=== PATIENT | female | born 1960 | race Caucasian/White ===

== ENCOUNTER 2018-03-20 14:07 | Emergency (ER) | payer OTHER ==
--- OUTSIDE RECORDS SUMMARY | 2018-03-20 14:18 | XMS REPORT ---
:1960 External Reference #:[id number] Author Organization [employer] Address [address] [facility] [place] [address] Phone [phone] Care Team Providers Name Role Phone Juhi Myles MD Primary Care Physician Unavailable Payers Type Date Identification Numbers Payment Provider Subscriber Commercial Policy Number: [id number] [facility] Chayito Lovett Tashia PayID: [id number] [address] [place] [address] Medigap Part B Effective: 2013 Policy Number: [employer] Chayito Lovett Tashia [id number] Expires: 2018 PayID: [id number] [address] [address] [place] [address] Medigap Part B Effective: 2010 Policy Number: [employer] Chayito Lovett Tashia [id number] Expires: 2013 PayID: [id number] [address] [address] [place] [address] Medigap Part B Effective: Policy Number: [facility] Chayito Lovett Tashia 2009 [id number] Expires: 2010 PayID: [id number] [address] [address] [place] Ramos [address] Problems Date Description Provider Status Onset: 07/20/2011 Insomnia Becka Cruz, N.P. Active Onset: 07/20/2011 Hyperlipidemia Becka Cruz N.P. 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 each nostril twice a day Estrace 08/11/ Active Tablets 0.5mg 30tab 1 by mouth Becka 2012 s every day Varn, N.P. Prometrium 08/05/ Active Capsules 100mg 30cap Take One Becka 2012 s Capsule By Varn, N.P. Mouth AT Bedtime Fluticasone 06/25/ Active Suspension 50mcg/Act 16gm 1 461.9 Ebcka Propionate 2012 intranasal Varn, N.P. puffs once daily Ambien 01/15/ Active Tablets 10mg 30tab 06/18 to 1 Becka 2010 s tablet by Varn, N.P. mouth at bedtime as needed insomnia Fish Oil 12/22/ Active Capsules 300mg 2 po qd Denita 2011 Hardik Clemente Valtrex / Active Tablets 1gm 21tab 2 Tabs Becka s Every 12 Varn, N.P. Hours For 2 Doses as Needed Co Q-10 / Active Capsules 30mg daily Unknown 0000 Vit C / Active Unknown 0000 Vit E / Active Unknown 0000 Doxycycline 06/01/ Hx Tablets 20mg 20tab 1 po bid 782.1 Becka Hyclate 2012 - s for 10 days Varn, N.P. 2012 Vivelle-Dot 08/05/ Hx Patches 0.0375mg/ 8unit apply 1 Becka 2012 - Biweek 24HR s patch twice Varn, N.P. 08/11/ a week 2012 Zetonna 06/25/ Hx Aerosol 37mcg/Act 461.9 Kylie 2012 - Chante, 08/04/ M.D. 2013 Amoxicillin 06/25/ Hx Capsules 500mg 10cap one tablet 461.9 Kylie 2012 - s by mouth Chante 02/18/ every 12 M.D. 2013 hours until gone Fluconazole 05/15/ Hx Tablets 150mg 2tabs one by Kylie 2011 - mouth october Sharif, 06/25/ repeat in 3 M.D. 2012 days as needed Azithromycin 05/06/ Hx Tablets 250mg 6tabs 2 tabs po Denita 2012 - on day 1; 1 Bryn, 05/23/ tab po qd M.D. 2011 on days 2-5 Fluticasone 04/15/ Hx Suspension 50mcg/Act 16gm 2 461.9 Denita Propionate 2011 - intranasal Bryn, 06/25/ puffs once M.D. 2012 daily Azithromycin 04/15/ Hx Tablets 250mg 6tabs 2 tabs po 461.9 Denita 2012 - on day 1; 1 Bryn, 04/25/ tab po qd M.D. 2011 on days 2-5 Gabapentin 04/10/ Hx Capsules 300mg 30cap 1 capsule Anaya 2010 - s at bedtime Marley, 08/02/ M.D., FACP 2011 Jolessa 12/27/ Hx Tablets 0.15-0.03 1tabs 1 po qd Anaya 2010 - mg Marley, 08/02/ M.D., FACP 2011 Vitamin E 12/22/ Hx Capsules 100Unit 1 po qd Denita 2011 - Bryn, 05/23/ M.D. 2011 Seasonique 12/22/ Hx Tablets 0.15-0.03 91tab take 1 V25.02 2010 - &0.01mg s tablet by Bryn, 12/27/ mouth once M.D. 2010 a day Azithromycin 04/29/ Hx Tablets 250mg 6tabs 2 tabs po Denita 2009 - on day 1; 1 Bryn, 06/20/ tab po qd M.D. 2010 on days 2-5 Ambien 03/06/ Hx Tablets 5mg 30tab one by Anaya 2009 - s mouth at Marley, 01/15/ bedtime as M.D., FACP 2010 needed for sleep Trazodone HCL / Hx Tablets 50mg 30tab 1 tablet at Anaya 0000 - s bedtime as Marley, 03/06/ needed M.D., FACP 2009 Flaxseed Oil / Hx Capsules 1000mg 1 po qd Unknown 0000 - 2011 Immunizations CPT Code Status Date Vaccine Lot # [id number] Given 03/05/2012 Fluzone Vaccine [id number] Given 06/20/2010 Influenza Virus 3Yrs & Over 13010 Given 06/20/2007 Tdap - Tetanus/Diptheria/Acellular Pertussis [id number] Given 04/24/2007 Influenza Virus 3Yrs & Over 23295 Given 04/24/2007 Influenza Virus 3Yrs & Over Vital Signs Date Vital Result Comment 03/19/2018 Height 67 inches 5'7" Weight 158.00 lb Heart Rate 78 /min BP Systolic 126 mmHg BP Diastolic 76 mmHg Respiratory Rate 12 /min Pain Level 0 BMI (Body Mass Index) 24.7 kg/m2 06/24/2013 Weight 147.00 lb Heart Rate 64 /min BP Systolic 120 mmHg BP Diastolic 74 mmHg 06/01/2013 Weight 150.00 lb Heart Rate 64 /min BP Systolic Sitting 120 mmHg BP Diastolic Sitting 72 mmHg Body Temperature 97.2 F 08/04/2012 Height 65.75 inches 5'5.75" Weight 143.00 lb Heart Rate 64 /min BP Systolic Sitting 138 mmHg BP Diastolic Sitting 80 mmHg BMI (Body Mass Index) 23.3 kg/m2 07/16/2012 Height 66 inches 5'6" Weight 145.00 lb Heart Rate 68 /min BP Systolic Sitting 124 mmHg BP Diastolic Sitting 70 mmHg BMI (Body Mass Index) 23.4 kg/m2 06/25/2012 Height 66 inches 5'6" Weight 145.00 lb Heart Rate 64 /min BP Systolic Sitting 100 mmHg BP Diastolic Sitting 80 mmHg Body Temperature 97.4 F BMI (Body Mass Index) 23.4 kg/m2 05/23/2012 Height 66 inches 5'6" Weight 144.00 lb Heart Rate 68 /min BP Systolic Sitting 128 mmHg BP Diastolic Sitting 76 mmHg BMI (Body Mass Index) 23.2 kg/m2 04/15/2012 Height 66 inches 5'6" Weight 146.00 lb Heart Rate 70 /min BP Systolic Sitting 128 mmHg BP Diastolic Sitting 80 mmHg Body Temperature 97.5 F BMI (Body Mass Index) 23.6 kg/m2 03/05/2012 Height 66 inches 5'6" Weight 146.00 lb Heart Rate 64 /min BP Systolic Sitting 146 mmHg BP Diastolic Sitting 86 mmHg BMI (Body Mass Index) 23.6 kg/m2 08/16/2011 Height 66 inches 5'6" Weight 155.00 lb Heart Rate 72 /min BP Systolic Sitting 120 mmHg BP Diastolic Sitting 72 mmHg BMI (Body Mass Index) 25.0 kg/m2 08/02/2011 Height 66 inches 5'6" Weight 153.00 lb Heart Rate 60 /min BP Systolic Sitting 118 mmHg BP Diastolic Sitting 76 mmHg BMI (Body Mass Index) 24.7 kg/m2 04/10/2011 Height 66 inches 5'6" Weight 156.00 lb Heart Rate 72 /min BP Systolic Sitting 134 mmHg L BP Diastolic Sitting 78 mmHg L BMI (Body Mass Index) 25.2 kg/m2 12/22/2010 Height 66 inches 5'6" Weight 152.00 lb Heart Rate 64 /min BP Systolic Sitting 132 mmHg BP Diastolic Sitting 80 mmHg BMI (Body Mass Index) 24.5 kg/m2 06/20/2010 Height 66 inches 5'6" Weight 155.00 lb Heart Rate 78 /min BP Systolic 110 mmHg BP Diastolic 62 mmHg BMI (Body Mass Index) 25.0 kg/m2 03/06/2010 Weight 159.00 lb Heart Rate 72 /min BP Systolic 124 mmHg BP Diastolic 80 mmHg Results Test Date Test Result H/L Range Note Laboratory test finding 08/04/2012 Cytology RUN DATE: <SEE NOTE> Laboratory test finding 02/22/2012 PTT (Aptt) 26.3 SEC 25.1-38.5 Comp Metabolic Panel 02/22/2012 Sodium 136 mmol/L 135-145 Potassium 3.6 mmol/L 3.5-5.0 Chloride 103 mmol/L 101-111 Co2 (Carbon Dioxide) 26.0 mmol/L 22-32 Anion Gap 7.0 mmol/L 2-11 2 Glucose 153 mg/dL High 70-100 BUN 12 mg/dL 6-24 Creatinine 0.7 mg/dL 0.50-1.40 One Over Creatinine 1.42 BUN/Creatinine Ratio 17.1 8-20 Calcium 9.2 mg/dL 8.1-9.9 Total Protein 7.8 GM/DL 6.2-8.1 Albumin 4.3 GM/DL 3.6-5.4 Globulin 3.5 GM/DL 2-4 Albumin/Globulin Ratio 1.2 1-3 Bilirubin Total 0.8 mg/dL 0.4-1.5 3 Alkaline Phosphatase 46 U/L 30-110 Alt (SGPT) 32 U/L 14-54 Ast (Sgot) 35 U/L 12-42 eGFR Non- 88.6 > 60 eGFR 113.9 > 60 4 Laboratory test finding 02/22/2012 Troponin-I 0 NG/ML 0-0.06 5 Magnesium 1.6 mg/dL Low 1.7-2.6 Protime 02/22/2012 Inr 0.85 Low 0.88-1.13 6 Protime 10.1 SEC Low 10.3-13.5 7 CBC No Diff 02/22/2012 White Blood Count 6.2 CUMM 4.8-10.8 Red Cell Count 4.26 CUMM 4.2-5.4 Hemoglobin 14.8 g/dL 12.0-16.0 Hematocrit 42 % 35-47 Mean Corpuscular Volume 100 um3 High 79-97 Mean Corpuscular Hemoglob 35 pg High 27-31 Mean Corpuscular HGB Cone 35 g/dL 32-36 Redcell Distribution WDTH 14 % 10.5-15 Platelet Count 361 CUMM 150-450 Mean Platelet Volume 7.9 um3 7.4-10.4 Laboratory test 02/22/2012 Stool For Blood NEGATIVE Negative finding Surgical Pathology 09/07/2011 Surgical Pathology 8 <SEE NOTE> Laboratory test 08/02/2011 TSH 0.85 MIU/ML 0.34-5.60 finding Lipid Profile 08/02/2011 Triglyceride 103 mg/dL 40-200 (Trig/Chol/HDL) Cholesterol 294 mg/dL High Less Than 200 9 High Density Lipoprotein 74 mg/dL High 40-60 10 Cholesterol/HDL Ratio 3.97 AVERAGE 1-4.44 Low Density Lipoprotein 199 mg/dL High Less Than 100 11 Comp Metabolic Panel 08/02/2011 Sodium 138 mmol/L 135-145 Potassium 4.2 mmol/L 3.5-5.0 Chloride 104 mmol/L 101-111 Co2 (Carbon Dioxide) 28.0 mmol/L 22-32 Anion Gap 6.0 mmol/L 2-11 12 Glucose 96 mg/dL 70-100 BUN 7 mg/dL 6-24 Creatinine 0.7 mg/dL 0.50-1.40 One Over Creatinine 1.42 BUN/Creatinine Ratio 10.0 8-20 Calcium 9.5 mg/dL 8.1-9.9 Total Protein 7.4 GM/DL 6.2-8.1 Albumin 4.3 GM/DL 3.6-5.4 Globulin 3.1 GM/DL 2-4 Albumin/Globulin Ratio 1.4 1-3 Bilirubin Total 1.1 mg/dL 0.4-1.5 13 Alkaline Phosphatase 40 U/L 30-110 Alt (SGPT) 24 U/L 14-54 Ast (Sgot) 23 U/L 12-42 eGFR Non- 88.6 > 60 eGFR 113.9 > 60 14 Laboratory test finding 08/02/2011 C Reactive Protein High 1.0 mg/L Less Than 3 15 Sensit 1 RUN DATE: 08/05/12 [facility] LAB LIVE PAGE 1 RUN TIME: [address] [place] [id number] Specimen Inquiry Name: CHAYITO LAO : [address]: Becka Cruz NP Acct: [id number] Unit: [id number] AGE: 52 Location: [facility] Re08/04/12 SEX: F Status: REG REF SPEC: [id number] MARIVEL: 08/04/12-1439 [facility] DR: Becka Cruz NP REQ: [id number] RECD: 08/05/12 STATUS: CONCETTA LOAIZA DR: Anaya Roach MD _ ORDERED: IMAGE ANALYSIS FINAL DIAGNOSIS Negative for Intraepithelial lesion or Malignancy A. Ectocervical/Endocervical Specimen Adequacy: Satisfactory of evaluation Transformation zone component identified Patient Information: HPV: Thin Layer Pap Test w/reflex to high risk HPV DNA testing when ASCUS Actual Specimen Date: 08/04/12 LMP If Unknown: 08/2011 IUD: N ?: N Post Menopausal?: Y Hysterectomy?: N Previous Abnormal Pap Smears?:N Signed (signature on file) Sara SHELL Burleson (ASCP) 08/05/12 1240 This Pap test was evaluated with the assistance of the XL GroupPrep Test Imaging System. Due to cytologic findings at the retention representative microscope, comprehensive manual rescreening by a Spot Billing Clerk may be required. The Pap Smear is a screening test designed to aid in the detection of premalignant and malignant conditions of the uterine cervix. It is not a diagnostic procedure and should not be used as the sole means of detecting cervical cancer. Both false- positive and false- negative reports do occur. Depending on your risk status, a Pap smear shoudl be obtained and evaluated every 1-3 years. END OF REPORT * ML=Testing performed at Main Lab DEPARTMENT OF PATHOLOGY, [address] [place] [address] Joaquin Celestin M.D. Director [facility] Permit #[id number] 2 Anion gap measurement may be of limited value in the presence of any alkalosis, especially in a combined acid base disorder. . 3 A metabolite of Naproxen, O-desmethylnaproxen, has been shown to interfere with the Jendrassik-Arya method for measuring total bilirubin. Samples from patients who have taken Naproxen have shown spurious elevation in total bilirubin levels. 4 Because ethnic data is not always readily available, this report includes an eGFR for both -Americans and non- Americans. The National Kidney Disease Education Program (NKDEP) does not endorse the use of the MDRD equation for patients that are not between the ages of 18 and 70, are , have extremes of body size, muscle mass, or nutritional status, or are non- or non-. According to the National Kidney Foundation, irrespective of diagnosis, the stage of the disease is based on the level of kidney function: Stage Description GFR(mL/min/1.73 m(2)) 1 Kidney damage with normal or decreased GFR 90 2 Kidney damage with mild decrease in GFR 60-89 3 Moderate decrease in GFR 30-59 4 Severe decrease in GFR 15-29 5 Kidney failure <15 (or dialysis) 5 New Reference Range and Interpretation effective 03/20/2002 TnI (ng/ml) INTERPRETATION Less Than 0.06 ng/mL NOT SUPPORTIVE OF DIAGNOSIS OF [place] 0.06 - 0.50 ng/ml INDETERMINATE: SUGGEST SERIAL STUDIES IF CLINICALLY INDICATED. Greater than 0.5 ng/mL CONSISTENT WITH DIAGNOSIS OF [place] . 6 Recommended INR for Patients on Oral Anticoagulants Prophylaxis 2.0 - 3.0 Treatment of thrombosis 2.0 - 3.0 Prevention of embolism 2.0 - 3.0 Prevention of embolism from prosthetic heart valves 2.5 - 3.5 7 DIAGNOSIS,TREATMENT,AND THERAPY MUST BE BASED ON THE INR VALUE ALONE. 8 --- RUN DATE: 09/10/11 [facility] NMI LIVE PAGE 1 RUN TIME: 1405 Specimen Inquiry RUN USER: INTERFACE -- Name: CHAYITO LAO Status: REG REF Re09/07/11 Age/Sex: 51/F Unit#: [id number] Location: [facility] : [birth year] -- Specimen: [id number] SOUT Spec Date:09/07/11 Dr: James rob MD Spec Type: SURGICAL P Received:09/07/11-1245 Copies to: Anaya Roach MD SPECIMEN 1) COLON POLYP AT 40 CM. 2) COLON POLYP AT 35 CM. HISTORY POST-OP DIAGNOSIS: To terminal ileum - 2 polyps (40 cm. and 35 cm.); mild tics CLINICAL INFORMATION: Routine screening GROSS DESCRIPTION 1) The specimen is received in formalin labelled Chayito Lao, Colon Polyp at 40 cm., and consists of a newell soft tissue fragment measuring 0.6 x 0.3 x 0.2 cm. Submitted entirely, one cassette. 2) The specimen is received in formalin labelled Chayito Lao, Colon Polyp at 35 cm., and consists of multiple newell soft tissue fragments measuring 0.6 x 0.3 x 0.3 cm. Submitted entirely, one cassette. DIAGNOSIS 1) Colon, 40 cm., biopsy: Hyperplastic polyp. 2) Colon, 35 cm., biopsy: Hyperplastic polyp. Signed Electronically by: JOAQUIN CELESTIN MD 09/10/11 1402 -- -- DEPARTMENT OF PATHOLOGY, [address] [place] [address] [facility] Permit #[id number] Hardik Gonzalez M.D. Computer Network Support Specialist Dir myrna -- 9 CHOLESTEROL INTERPRETATION: Desirable: Less than 200 MG/DL Borderline-High Risk: 200-239 MG/DL High-Risk: 240 MG/DL and over 10 HDL INTERPRETATION: Undesirable: High Risk: Less than 40 MG/DL Desirable: Low Risk: Greater than 60 MG/DL 11 LDL INTERPRETATION: Low Risk Optimal Level: LDL Less than 100 MG/DL Near or Above Optimal: LDL 100-129 MG/DL Borderline High Risk: LDL 130-159 MG/DL High Risk: LDL 160-189 MG/DL Very High Risk: LDL Greater than 189 MG/DL 12 Anion gap measurement may be of limited value in the presence of any alkalosis, especially in a combined acid base disorder. . 13 A metabolite of Naproxen, O-desmethylnaproxen, has been shown to interfere with the Jendrassik-Arya method for measuring total bilirubin. Samples from patients who have taken Naproxen have shown spurious elevation in total bilirubin levels. 14 Because ethnic data is not always readily available, this report includes an eGFR for both -Americans and non- Americans. The National Kidney Disease Education Program (NKDEP) does not endorse the use of the MDRD equation for patients that are not between the ages of 18 and 70, are , have extremes of body size, muscle mass, or nutritional status, or are non- or non-. According to the National Kidney Foundation, irrespective of diagnosis, the stage of the disease is based on the level of kidney function: Stage Description GFR(mL/min/1.73 m(2)) 1 Kidney damage with normal or decreased GFR 90 2 Kidney damage with mild decrease in GFR 60-89 3 Moderate decrease in GFR 30-59 4 Severe decrease in GFR 15-29 5 Kidney failure <15 (or dialysis) 15 Less Than 1.0......Low Risk of Cardiovascular Disease 1.0-3.0............Medium Risk (<2 Fold Increase) Greater Than 3.0...High Risk (Approximately 2-Fold Increase) Procedures Date CPT Code Description Status 04/17/2016 53674 ECHO Stress Test Incl Perf Contiuous ekg Monitoring Completed W/Phys Superv 08/04/2013 Mammogram Completed 11/02/2011 Mammogram Completed 09/07/2011 Colonoscopy Completed 08/02/2010 Mammogram Completed 05/20/2009 13329 Endometrial Sampling W Or W/O Endocervical BX W Or W/O Completed Cerv Dilat 06/20/2007 15163 EKG Tracing & Interpretation Completed Encounters Type Date Location Provider CPT E/M Dx Office Visit 06/24/[address] [facility] Internal Medicine Becka Cruz N.P. 57166 780.52 4:00p - [place] 727.41 Office Visit 06/01/2013 9:00a [facility] Internal Medicine Becka Cruz N.P. 26948 472.0 - [place] 782.1 Office Visit 08/04/2012 1:00p [facility] Internal Medicine Becka Cruz N.P. 67328 V70.0 - [place] V72.31 V76.10 272.4 780.52 627.2 Office Visit 07/16/2012 4:00p [facility] Internal Medicine Becka Cruz N.P. 94275 455.3 - [place] Office Visit 06/25/2012 4:20p [facility] Internal Medicine Kylie Sharif M.D. 95964 461.9 - [place] Office Visit 05/23/2012 3:40p [facility] Internal Medicine Kylie Sharif M.D. 68928 719.44 - [place] 461.9 616.10 Office Visit 04/15/2012 3:40p [facility] Internal Medicine Denita Clemente, 92682 461.9 - [place] M.D. Office Visit 03/05/2012 3:40p [facility] Internal Medicine Anaya Roach M.D., 74944 401.9 - [place] FACP V04.81 Office Visit 08/16/2011 10:00a [facility] Internal Medicine Becka Cruz, N.P. 37078 272.4 - [place] Office Visit 08/02/2011 10:40a [facility] Internal Medicine Becka Cruz, N.P. 23781 V70.0 - [place] V72.31 V76.10 272.4 780.52 Office Visit 04/10/2011 8:40a DO Not Use [facility] Becka Cruz, 37077 627.2 N.P. 723.1 Office Visit 02/27/2011 2:30p [facility], 57762 836.0 C.M.A. MNgozi Office Visit 12/22/2010 2:40p DO Not Use Becka Anthony, N.P. 74394 V25.02 [facility] Office Visit 03/06/2010 9:45a DO Not Use Becka Cruz, N.P. 42400 780.52 [facility] Office Visit 04/19/2009 3:45p DO Not Use Becka Anthony, N.P. 45124 780.52 [facility] 626.2 Office Visit 09/03/2008 10:15a DO Not Use [facility] Anaya Roach, 52610 780.52 M.D., FACP 300.00 Office Visit 06/20/2007 11:00a DO Not Use [facility] Anaya Roach, 16548 V72.31 M.D., FACP 272.0 780.52 V06.1 Office Visit 04/24/2007 10:30a DO Not Use [facility] [place] [place], 39591 780.52 Hardik, FACP V04.81 Office Visit 03/28/2006 1:45p DO Not Use [facility], 40516 V72.31 Hardik, [facility] Plan [facility] Care Future Appointment(s):04/17/2018 2:50 pm - Aydee Busby MD at [facility]31/16/2018 8:00 am - Jose Leigh M.D. at [facility]
[2018-03-20 14:26] VITALS: BP 162/89
--- NOTE | 2018-03-20 15:31 | RAD ---
INDICATION: Head injury, headache. COMPARISON: There are no relevant prior studies available for comparison. TECHNIQUE: Contiguous axial sections of the brain were obtained from the skull base to the vertex without contrast. FINDINGS: The ventricles, cisterns and sulci are within normal limits. No significant focal abnormality or mass effect is seen. There is no evidence for hemorrhage. No significant focal osseous abnormality is seen. The visualized portion of the paranasal sinuses and mastoid air cells appear clear. IMPRESSION: NO EVIDENCE FOR ACUTE INTRACRANIAL ABNORMALITY.
--- NOTE | 2018-03-20 15:36 | RAD ---
INDICATION: Trauma, neck pain. COMPARISON: There are no prior studies available for comparison. TECHNIQUE: Contiguous axial sections were obtained from the skull base through the T2 vertebra. Images were reconstructed in the sagittal and coronal planes. FINDINGS: VERTEBRA: There is straightening of the cervical spine with loss of the normal cervical lordosis. No prevertebral soft tissue swelling or fracture is seen. C2-C3: No significant disc bulge or herniation is noted. No spinal canal or neural foraminal narrowing is seen. C3-C4: There is mild posterior uncinate process spurring. No significant spinal canal narrowing is present. There is mild to moderate bilateral neural foraminal narrowing. C4-C5: There is moderate posterior uncinate process spurring. There is mild spinal canal narrowing and moderate bilateral neural foraminal narrowing. C5-C6: There is mild posterior uncinate process spurring. No significant spinal canal narrowing is present. There is mild neural foraminal narrowing on the right side. C6-C7: No significant disc bulge or herniation is noted. No spinal canal or neural foraminal narrowing is seen. LUNG APICES: The lung apices appear clear. IMPRESSION: 1. NO EVIDENCE FOR FRACTURE OR SUBLUXATION. 2. MILD TO MODERATE CERVICAL SPONDYLOSIS DESCRIBED.
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
== END 2018-03-20 16:15 | disposition home or self-care (01) ==
LOC: UCEAST 14:07
DX: S16.1XXA Strain of muscle, fascia and tendon at neck level, initial encounter (principal); S09.90XA Unspecified injury of head, initial encounter; S80.02XA Contusion of left knee, initial encounter; M47.892 Other spondylosis, cervical region; V89.2XXA Person injured in unspecified motor-vehicle accident, traffic, initial encounter; Y92.9 Unspecified place or not applicable
CPT/HCPCS: 70450; 72125; 99211; G0463

== ENCOUNTER 2019-05-05 13:09 | Emergency (ER) | payer OTHER ==
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
[2019-05-05 13:47] VITALS: BP 202/115
== END 2019-05-05 14:23 | disposition short-term general hospital (02) ==
LOC: UCEAST 13:09
DX: I10 Essential (primary) hypertension (principal); M54.89 Other dorsalgia; R07.89 Other chest pain
CPT/HCPCS: 93005; 99213; G0463

== ENCOUNTER 2019-05-05 14:32 | Emergency (ER) | payer OTHER ==
--- NOTE | 2019-05-05 14:51 | ED ---
Neck Pain - HPI Summary HPI Summary: This patient is a 59 year old F sent to ED from with a chief complaint of neck pain that radiates to the shoulder blades and down the upper back since last night at dinner. This morning, when about to shower, the pain came on again. This time she also reports having left hand shakiness. The pain went away but then it occurred again while the patient was at work. This third time, she felt like she was going to pass out so she was sent home. Patient then went to Urgent Care, and felt the pain again while on the way to the office. The pain is described as soreness. At Urgent Care, patient was found to be hypertensive. EMS reports patient had a HR 108 and sinus tachycardia. Patient denies any unusual activity recently or any trauma. The patient rates the pain 6 /10 in severity. Symptoms aggravated by nothing. Symptoms alleviated by nothing. Patient denies fever, nausea, vomiting, diarrhea. Medications reviewed. Allergies noted. - History of Current Complaint Chief Complaint: EDBackInjuryPain Stated Complaint: BACK PAIN PER EMS Time Seen by Provider: 05/05/19 14:42 Hx Obtained From: Patient Onset/Duration Of Injury/Symptoms: Days - Since dinner last night Mechanism Of Injury: No Known Trauma Timing: Intermittent Onset/Duration: Sudden Onset, Started hours ago - At dinner last night, Still Present Severity Initially: Moderate Severity Currently: Moderate Pain Intensity: 6 Pain Scale Used: 0-10 Numeric Location: Discrete At: - Neck, Radiates To: - Shoulders and upper back Character: Other: - Sore Aggravating Factors: Nothing Alleviating Factors: Nothing Associated Signs & Symptoms: Negative: Fever - Allergies/Home Medications Allergies/Adverse Reactions: Allergies Allergy/AdvReac Type Severity Reaction Status Date / Time gluten Allergy See Comment Verified 05/05/19 13:28 PMH/Surg Hx/FS Hx/Imm Hx Endocrine/Hematology History: Denies: Hx Diabetes, Hx Thyroid Disease Cardiovascular History: Reports: Hx Hypertension, Other Cardiovascular Problems/ Disorders - 3 weeks ago thought she was having heart attack Denies: Hx Hypercholesterolemia, Hx Pacemaker/ICD, Hx Peripheral Vascular Disease Respiratory History: Denies: Hx Asthma, Hx Chronic Obstructive Pulmonary Disease (COPD) GI History: Denies: Hx Ulcer Musculoskeletal History: Denies: Hx Arthritis, Hx Rheumatoid Arthritis, Hx Osteoporosis Sensory History: Denies: Hx Cataracts, Hx Contacts or Glasses, Hx Glaucoma, Hx Hearing Aid Opthamlomology History: Denies: Hx Cataracts, Hx Contacts or Glasses, Hx Glaucoma Neurological History: Denies: Hx Headaches, Hx Seizures, Hx Transient Ischemic Attacks (TIA) Psychiatric History: Denies: Hx Anxiety, Hx Depression, Hx Panic Disorder - Cancer History Hx Chemotherapy: No Hx Radiation Therapy: No - Surgical History Surgery Procedure, Year, and Place: RT KNEE-TORN MENISCUS- 2012- no metal. [place]CYST [place] [facility] [place] Infectious Disease History: No Infectious Disease History: Denies: Hx Hepatitis, Hx Human Immunodeficiency Virus (HIV), History Other Infectious Disease, Traveled Outside the [place] in Last 30 Days - Family History Known Family History: Positive: Hypertension, Other - mother had multiple myeloma - Social History Alcohol Use: Daily - 3-4 drinks daily Hx Substance Use: No Substance Use Type: Reports: None Hx Tobacco Use: No Smoking Status (MU): Never Smoked Tobacco Review of Systems Negative: Fever Negative: Vomiting, Diarrhea, Nausea Musculoskeletal: Other - Neck pain radiating across bilateral shoulders down upper back All Other Systems Reviewed And Are Negative: Yes Physical Exam - Summary Physical Exam Summary: Constitutional: Well-developed, Well-nourished, Alert. (-) Distressed Skin: Warm, Dry HENT: Normocephalic; Atraumatic Eyes: Conjunctiva normal Neck: Musculoskeletal ROM normal neck. (-) JVD, (-) Stridor, (-) Tracheal deviation Cardio: Rhythm regular, rate normal, Heart sounds normal; Intact distal pulses; Radial pulses are 2+ and symmetric. (-) Murmur Pulmonary/Chest wall: Effort normal. (-) Respiratory distress, (-) Wheezes, (-) Rales Abd: Soft, (-) tenderness, (-) Distension, (-) Guarding, (-) Rebound Musculoskeletal: (-) Edema Lymph: (-) Cervical adenopathy Neuro: Alert, Oriented x3 Psych: Mood and affect Normal Triage Information Reviewed: Yes Vital Signs On Initial Exam: Initial Vitals Temp Pulse Resp BP Pulse Ox 97 F 103 17 217/130 100 05/05/19 14:36 05/05/19 14:36 05/05/19 14:36 05/05/19 14:36 05/05/19 14:36 Vital Signs Reviewed: Yes Procedures - Sedation Patient Received Moderate/Deep Sedation with Procedure: No Diagnostics - Vital Signs Vital Signs Temp Pulse Resp BP Pulse Ox 05/05/19 14:36 97 F 103 17 217/130 100 - Laboratory Result Diagrams: 05/05/19 15:32 05/05/19 15:32 Lab Statement: Any lab studies that have been ordered have been reviewed, and results considered in the medical decision making process. - CT C/A/P CT Interpretation Completed By: Radiologist Summary of CT Findings: 1. THERE IS NO EVIDENCE FOR AORTIC DISSECTION. 2. 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 3. CORONARY ATHEROSCLEROSIS. 4. MILD HEPATOMEGALY AND HEPATIC STEATOSIS. 5. SMALL PERIUMBILICAL HERNIA CONTAINING FAT. 6. SMALL 4 MM RIGHT MIDDLE LOBE PULMONARY NODULE. IF THE PATIENT HAS RISK FACTORS RECOMMEND A FOLLOW-UP NONCONTRAST LOW-DOSE CT OF THE CHEST IN ONE YEARS TIME. Dr. De La Torre has reviewed this radiology report. Re-Evaluation - Re-Evaluation First Eval Re-Evaluation Time: 16:34 Comment: Discussed results with patient. Strict return precautions given. Patient will be discharged home with instructions to follow-up with Dr. Honeycutt for a stress test and with her primary care for a follow-up CT scan in one year' s time to check on the pulmonary nodule noted today. Discussed mechanisms for stress management with patient. Neck Course/Dx - Course Course Of Treatment: Patient is here with hypertension, tachycardia, pain in her neck and upper back. Patient was sent in from urgent care to rule out dissection. Patient was near asymptomatic upon arrival. However, given patient 's symptomology a CTA was performed which showed no evidence of dissection. Patient does have a lung nodule that she was made aware of that she needs follow -up for in 1 year. Patient did have an episode where she felt pain in her back , tachypnea all getting IV fluids. Patient was encouraged to take along deep breaths which improved her symptoms. I do believe there is a panic aspect to this illness as she is going through multiple high stress situations in life. 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 - Diagnoses Provider Diagnoses: Tachycardia, Hypertension, Upper back pain Discharge ED - Sign-Out/Discharge Documenting (check all that apply): Patient Departure - Discharge - Discharge Plan Condition: Stable Disposition: HOME Prescriptions: hydrOXYzine pamoate [Vistaril] 25 mg PO Q6HR PRN #20 capsule PRN Reason: Anxiety Patient Education Materials: Tension Headache (ED), Hypertension (ED), Pulmonary Nodules (ED), Tachycardia (ED) Referrals: Juhi Joseph MD [Primary Care Provider] - 3 Days Carina Honeycutt MD [Medical Doctor] - 3 Days Additional Instructions: You need to follow-up with your primary care provider for another CT scan in one year for the pulmonary nodule noted on your CT scan taken today. Follow-up with Dr. Honeycutt for a stress test. Look up breathing techniques on Youtube for anxiety. Take your anxiety medications today. Come back if you have chest pain, trouble breathing, or any other worsening or changing symptoms. - Billing Disposition and Condition Condition: STABLE Disposition: Home - Attestation Statements Document Initiated by Cherise: Yes Documenting Scribe: Jalen Donato Provider For Whom Cherise is Documenting (Include Credential): Andrea De La Torre MD Scribe Attestation: IJalen, scribed for Andrea De La Torre MD on 05/05/19 at 1755. Scribe Documentation Reviewed: Yes Provider Attestation: The documentation as recorded by the Jalen ocampo accurately reflects the service I personally performed and the decisions made by me, Andrea De La Torre MD Status of Scribe Document: Viewed
[2019-05-05] MEDS ORDERED: NS 0.9% 1000 ML** 1,000 ML IV ONE (14:56)
[2019-05-05] MEDS ORDERED: Iodixanol* (CONTRAST) 320 MG/ML 100 ML SDV IV ONE (15:12)
[2019-05-05 15:41] LABS: ABS Basophils 0.1 10^3/ul (0-0.2); ABS Eosinophils 0.1 10^3/ul (0-0.6); ABS Lymphocytes 1.6 10^3/ul (1.0-4.8); ABS Monocytes 1.1 10^3/ul (0-0.8); ABS Neutrophils 4.4 10^3/ul (1.5-7.7); Eosinophil % 0.9 %; Hematocrit 41 % (35-47); Lymphocyte % 22.2 %; Mean Corpuscular HGB Conc 34 g/dL (31-36); Mean Corpuscular Hemoglobin 34 pg (27-31); Mean Corpuscular Volume 98 fL (80-97); Mean Platelet Volume 7.4 fL (7.4-10.4); Platelet Count 511 10^3/uL (150-450); Red Blood Count 4.16 10^6 /uL (3.70-4.87); Red Cell Distribution Width 13 % (10-15); White Blood Count 7.3 10^3/uL (3.5-10.8)
[2019-05-05 16:06] LABS: Albumin 4.2 g/dL (3.2-5.2); Albumin/Globulin Ratio 1.4 (1-3); Calcium 10.2 mg/dL (8.6-10.3); EGFR African American 124.2 (>60); EGFR Non-African American 102.7 (>60); Potassium 3.8 mmol/L (3.5-5.0); Total Bilirubin 0.4 mg/dL (0.2-1.0); Total Protein 7.2 g/dL (6.4-8.9)
[2019-05-05 16:07] LABS: Troponin I 0.01 ng/mL (<0.03)
[2019-05-05] MEDS ORDERED: LORazepam INJ* 2 MG/ML 1 ML VIAL IV PUSH ONE (16:13)
[2019-05-05] MEDS ORDERED: Lorazepam PYXIS KEY PRN (16:13)
[2019-05-05] MEDS ORDERED: Lorazepam PYXIS KEY ONE (16:20)
[2019-05-05 17:04] VITALS: BP 183/95
== END 2019-05-05 17:09 | disposition home or self-care (01) ==
LOC: ED 14:32
DX: M54.6 Pain in thoracic spine (principal); M54.2 Cervicalgia; R00.0 Tachycardia, unspecified; I25.10 Atherosclerotic heart disease of native coronary artery without angina pectoris; I10 Essential (primary) hypertension; R16.0 Hepatomegaly, not elsewhere classified; K42.9 Umbilical hernia without obstruction or gangrene; R91.1 Solitary pulmonary nodule
CPT/HCPCS: 36415; 71275; 74174; 80053; 84484; 85025; 85379; 96361; 96374; 99283; J2060; Q9967

== ENCOUNTER 2019-05-11 15:25 | Observation (INO) | payer OTHER ==
--- OUTSIDE RECORDS SUMMARY | 2019-05-11 15:38 | XMS REPORT | Continuity of Care Document ---
:1960 External Reference #:[id number] Author Name Carmelita Means M.D. (transmitted by agent of provider Savita Sin) Address [address] [place] [address] Care Team Providers Name Role Phone Juhi Myles MD - Family Medicine Care Team Information Security Alarm Installer [phone] Problems Active Problems Provider Date Insomnia Becka Varn, N.P. Onset: 07/20/2011 Hyperlipidemia Becka Varn, N.P. Onset: 07/20/2011 Social History Type Date Description Comments Sex Unknown ETOH Use Currently consumes alcohol Tobacco Use Start: Unknown Patient has never smoked Smoking Status Reviewed: 02/17/19 Patient has never smoked Exercise Type/Frequency Exercises regularly 6 days weekly Allergies, Adverse Reactions, Alerts Active Allergies Reaction Severity Comments Date No Known Drug Allergy 02/27/2010 Medications Active Medications SIG Qnty Indications Ordering Provider Date Estrace 1 by mouth every 30tabs Becka Varn, 08/11/2012 0.5mg Tablets day N.P. Prometrium Take One Capsule 30caps Becka Varn, 08/05/2012 100mg By Mouth AT N.P. Capsules Bedtime Ambien 1/2 to 1 tablet 30tabs Becka Varn, 01/15/2011 10mg Tablets by mouth at N.P. bedtime as needed insomnia Fish Oil 2 po qd Denita Clemente, 12/22/2010 300mg M.D. Capsules Valtrex 2 Tabs Every 12 21tabs Becka Varn, 1gm Tablets Hours For 2 Doses N.P. as Needed Co Q-10 daily Unknown 30mg Capsules Vit C Unknown Vit E Unknown Lisinopril Juhi Myles MD 2.5mg Tablets Vitamin B-Complex Unknown Medications Administered in Office Medication SIG Qnty Indications Ordering Provider Date Depomedrol 40MG Josephine Alcazar M.D. 12/11/2018 Injection Depomedrol 40MG Josephine Alcazar M.D. 12/11/2018 Injection No Injection Josephine Alcazar M.D. 04/17/2018 Injection Xiaflex Inj Josephine Alcazar M.D. 04/14/2018 Collagenase,Clostridium Histolyticum, 0.01MG Injection Immunizations CPT Code Status Date Vaccine Lot # [id number] Given 03/05/2012 Fluzone Vaccine [id number] Given 06/20/2010 Influenza Virus 3Yrs & Over 03854 Given 06/20/2007 Tdap - Tetanus/Diptheria/Acellular Pertussis 24570 Given 04/24/2007 Influenza Virus 3Yrs & Over 42926 Given 04/24/2007 Influenza Virus 3Yrs & Over Vital Signs Date Vital Result Comment 02/17/2019 10:07am Height 67 inches 5'7" Weight 148.00 lb Heart Rate 94 /min BP Systolic 122 mmHg BP Diastolic 84 mmHg Body Temperature 97.1 F Pain Level 0 BMI (Body Mass Index) 23.2 kg/m2 12/11/2018 8:49am Height 67 inches 5'7" Weight 150.00 lb BP Systolic 124 mmHg BP Diastolic 82 mmHg Respiratory Rate 16 /min Pain Level 0 BMI (Body Mass Index) 23.5 kg/m2 Results Description No Information Available Procedures Date Code Description Status 12/11/201824506 Inject/Drain Joint/Bursa Intermediate W/O US Completed 12/11/201842914 Inject Tendon Sheath Or Ligament Aponeurosis Eg Plantar Completed Fascia 08/04/2013 [id number] Mammogram Completed 11/02/2011 [id number] Mammogram Completed 09/07/2011 [id number] Colonoscopy Completed 08/02/2010 [id number] Mammogram Completed Medical Devices Description No Information Available Encounters Type Date Location Provider Dx Diagnosis Office Visit 05/05/2019 [facility] Aydee Busby, L71.0 Perioral dermatitis 8:45a L85.3 Xerosis cutis D22.5 Melanocytic nevi of trunk L81.4 Other melanin hyperpigmentation Office Visit 12/04/2018 Gui Burton 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 [place] [Dupuytren] M65.312 Trigger thumb, left thumb Office Visit 11/12/2018 Gui Burton M72.0 Palmar fascial 3:00p [facility] fibromatosis [place] [Dupuytren] Office Visit 11/12/2018 [facility] Aydee Busby L57.0 Actinic keratosis 2:10p L81.4 Other melanin hyperpigmentation L70.0 Acne vulgaris Office Visit 11/11/2018 9:00a Gui Jose M25.774 Osteophyte, right [facility] foot [place] Assessments Date Code Description Provider 05/05/2019 L71.0 Perioral dermatitis Aydee Busby MD 05/05/2019 L85.3 Xerosis cutis Aydee Busby MD 05/05/2019 D22.5 Melanocytic nevi of trunk Aydee Busby MD 05/05/2019 L81.4 Other melanin hyperpigmentation Aydee Busby MD 02/17/2019 M25.774 Osteophyte, right foot Jose Leigh M.D. 12/11/2018 M65.312 Trigger thumb, left thumb Josephine Alcazar M.D. 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 12/04/2018 M65.312 Trigger thumb, left thumb Josephine Alcazar M.D. 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 11/11/2018 M25.774 Osteophyte, right foot Jose Leigh M.D. Plan of Treatment Future Appointment(s):07/28/2019 1:30 pm - Aydee Busby MD at [facility] Nfirtuixfqi08/03/2019 - Jose Leigh M.D.M25.774 Osteophyte, right footFollow up:10-14 days postop Functional Status Description No Information Available Mental Status Description No Information Available Referrals Description No Information Available
[2019-05-11] MEDS ORDERED: Diazepam INJ* 5 MG/ML 10 ML VIAL (50 MG TOTAL) IV ONE ×3 (16:42→18:20)
--- NOTE | 2019-05-11 16:44 | ED ---
Palpitations / Dysrhythmia - HPI Summary HPI Summary: This patient is a 59 year old female presenting to [facility] with a chief complaint of intermittent palpitations since this morning. The patient states she was here last week for the same thing, which she states started with tension in her neck and shoulder blades and had a hypertensive episode. She followed up with her PCP who felt it may be panic attacks. She states she found out about a in the family and took the anxiety medication she was prescribed recently and started to feel the palpitations which she feels may be a side effect to her anxiety medication. She reports heart burn, back pain and near-syncope when she has these episodes. Pt denies any fever, chills, erythema of eyes, sore throat, CP, SOB, cough, abdominal pain, N/V, dysuria, hematuria, myalgia, edema , rash, or dizziness. The patient has been checking her blood pressure at home and noted it is usually within normal limits prior to her episode. In the room her BP is 223/126, HR 110 BPM. - History of Current Complaint Chief Complaint: EDDysrhythmPalp Time Seen by Provider: 05/11/19 16:32 Hx Obtained From: Patient Onset/Duration: Lasting Hours Aggravating: Other - Recent stress - Allergy/Home Medications Allergies/Adverse Reactions: Allergies Allergy/AdvReac Type Severity Reaction Status Date / Time gluten Allergy See Comment Verified 05/05/19 13:28 PMH/Surg Hx/FS Hx/Imm Hx Endocrine/Hematology History: Denies: Hx Diabetes, Hx Thyroid Disease Cardiovascular History: Reports: Hx Hypertension, Other Cardiovascular Problems/ Disorders - 3 weeks ago thought she was having heart attack Denies: Hx Hypercholesterolemia, Hx Pacemaker/ICD, Hx Peripheral Vascular Disease Respiratory History: Denies: Hx Asthma, Hx Chronic Obstructive Pulmonary Disease (COPD) GI History: Denies: Hx Ulcer History: Denies: Hx Renal Disease Musculoskeletal History: Denies: Hx Arthritis, Hx Rheumatoid Arthritis, Hx Osteoporosis Sensory History: Denies: Hx Cataracts, Hx Contacts or Glasses, Hx Glaucoma, Hx Hearing Aid Opthamlomology History: Denies: Hx Cataracts, Hx Contacts or Glasses, Hx Glaucoma Neurological History: Denies: Hx Headaches, Hx Seizures, Hx Transient Ischemic Attacks (TIA) Psychiatric History: Denies: Hx Anxiety, Hx Depression, Hx Panic Disorder - Cancer History Hx Chemotherapy: No Hx Radiation Therapy: No - Surgical History Surgery Procedure, Year, and Place: RT [facility]- 2012- no metal. HEAD -CYST REMOVAL 04-21 [facility] [place] NO METAL Infectious Disease History: No Infectious Disease History: Denies: Hx Hepatitis, Hx Human Immunodeficiency Virus (HIV), History Other Infectious Disease, Traveled Outside the [place] in Last 30 Days - Family History Known Family History: Positive: Hypertension, Other - mother had multiple myeloma - Social History Alcohol Use: Daily Alcohol Amount: 3-4 daily Hx Substance Use: No Substance Use Type: Reports: None Hx Tobacco Use: No Smoking Status (MU): Never Smoked Tobacco Review of Systems Negative: Fever, Chills Positive: Palpitations, Chest Pain - Heart Burn Negative: Shortness Of Breath, Cough Negative: Abdominal Pain, Vomiting, Nausea Negative: dysuria, hematuria Positive: Other - Back pain. Negative: Myalgia, Edema Neurological: Other - Neg: Dizziness Positive: Syncope All Other Systems Reviewed And Are Negative: No Physical Exam - Summary Physical Exam Summary: Constitutional: Well-developed, Well-nourished, Alert. (-) Distressed. The patient is tremulous. Skin: Warm, Dry HENT: Normocephalic; Atraumatic Eyes: Conjunctiva normal Neck: Musculoskeletal ROM normal neck. (-) JVD, (-) Stridor, (-) Tracheal deviation Cardio: Rhythm regular, rate normal, Heart sounds normal; Intact distal pulses; The pedal pulses are 2+ and symmetric. Radial pulses are 2+ and symmetric. (-) Murmur Pulmonary/Chest wall: Effort normal. (-) Respiratory distress, (-) Wheezes, (-) Rales Abd: Soft, (-) tenderness, (-) Distension, (-) Guarding, (-) Rebound Musculoskeletal: (-) Edema Lymph: (-) Cervical adenopathy Neuro: Alert, Oriented x3 Psych: Mood and affect Normal Triage Information Reviewed: Yes Vital Signs On Initial Exam: Initial Vitals Temp Pulse Resp BP Pulse Ox 97.7 F 108 18 213/108 100 05/11/19 15:27 05/11/19 15:27 05/11/19 15:27 05/11/19 15:27 05/11/19 15:27 Vital Signs Reviewed: Yes Procedures - Sedation Patient Received Moderate/Deep Sedation with Procedure: No Diagnostics - Vital Signs Vital Signs Temp Pulse Resp BP Pulse Ox 05/11/19 15:27 97.7 F 108 18 213/108 100 - Laboratory Lab Statement: Any lab studies that have been ordered have been reviewed, and results considered in the medical decision making process. - EKG 1527 Cardiac Rate: Tachycardia - 101 BPM EKG Rhythm: Sinus Rhythm Summary of EKG Findings: No STEMI. ED Physician has reviewed and interpreted this EKG. Course/Dx - Course Course Of Treatment: This patient is a 59 year old female presenting to [facility] with a chief complaint of intermittent palpitations since this morning. Labs were unremarkable except MCH 34 H, Plt Count 537 H, Absolute Monos 1.4 H, CO2 21 L, Anion Gap 14 H, Glucose 112 H, Lactic Acid 2.8 H, Calcium 11.5 H, Magnesium 1.[address] Love, hospitalist, accepted the patient for admission. This plan was discussed with the patient and she was agreeable with this plan. - Diagnoses Provider Diagnoses: Hypertensive emergency, Chest pain Discharge ED - Sign-Out/Discharge Documenting (check all that apply): Patient Departure - Admission - Discharge Plan Condition: Stable Disposition: ADMITTED TO [facility] Referrals: Juhi Joseph MD [Primary Care Provider] - - Attestation Statements Document Initiated by Scribe: Yes Documenting Scribe: Jose Castañeda Provider For Whom Scribe is Documenting (Include Credential): Alex Castanon MD Scribe Attestation: Jose Leggett, scribed for Alex Castanon MD on 05/11/19 at 1646. Status of Scribe Document: Ready
[2019-05-11 16:50] LABS: ABS Basophils 0.1 10^3/ul (0-0.2); ABS Lymphocytes 1.9 10^3/ul (1.0-4.8); ABS Monocytes 1.4 10^3/ul (0-0.8); ABS Neutrophils 6.2 10^3/ul (1.5-7.7); Eosinophil % 0.3 %; Hematocrit 40 % (35-47); Hemoglobin 14.2 g/dL (12.0-16.0); Lymphocyte % 19.6 %; Mean Corpuscular HGB Conc 35 g/dL (31-36); Mean Corpuscular Hemoglobin 34 pg (27-31); Mean Corpuscular Volume 96 fL (80-97); Mean Platelet Volume 7.4 fL (7.4-10.4); Platelet Count 537 10^3/uL (150-450); Red Cell Distribution Width 13 % (10-15); White Blood Count 9.6 10^3/uL (3.5-10.8)
[2019-05-11 17:08] LABS: Albumin 4.5 g/dL (3.2-5.2); Calcium 11.5 mg/dL (8.6-10.3); Magnesium 1.1 mg/dL (1.9-2.7); Potassium 3.9 mmol/L (3.5-5.0); Total Bilirubin 0.5 mg/dL (0.2-1.0)
[2019-05-11 17:14] LABS: Albumin/Globulin Ratio 1.5 (1-3); BUN/Creatinine Ratio 12.7 (8-20); EGFR African American 117.4 (>60); EGFR Non-African American 97.1 (>60); Total Protein 7.5 g/dL (6.4-8.9)
[2019-05-11 17:39] LABS: TSH (Thyroid Stimulating Horm) 4.75 mcIU/mL (0.34-5.60)
[2019-05-11 17:40] LABS: Free T4 0.81 ng/dL (0.61-1.12)
[2019-05-11] MEDS ORDERED: Metoprolol Tartrate IV* 1 MG/ML 5 ML VIAL IV ONE (18:35)
[2019-05-11] MEDS: NS 0.9% 1000 ML** 2,000 ML IV ONE (18:45)
[2019-05-11] MEDS ORDERED: Magnesium Sulf 4 GM/100 ML IV* 4,000 MG/100 ML BAG IVPB ONE (20:08)
[2019-05-11] MEDS ORDERED: traMADol TAB* 50 MG PO PRN (20:52)
[2019-05-11] MEDS ORDERED: Acetaminophen TAB* 325 MG PO PRN (20:52)
[2019-05-11] MEDS ORDERED: amLODIPine TAB* 5 MG PO SCH (21:00)
[2019-05-11] MEDS ORDERED: Lisinopril TAB* 5 MG PO SCH (21:00)
--- NOTE | 2019-05-11 22:14 | HP ---
CC: Dr. Joseph * HISTORY AND PHYSICAL: DATE OF ADMISSION: 05/11/19 PRIMARY CARE PROVIDER: Dr. Joseph. CHIEF COMPLAINT: Neck pain, palpitations, shortness of breath. HISTORY OF PRESENT ILLNESS: Ms. Lao is a 59-year-old female, who on 05/05/19 was admitted [facility] with complaints of neck pain and marked hypertension. The patient was diagnosed with panic attacks and ultimately discharged home from the emergency room after her blood pressure trended down slightly. The patient states that she saw Dr. Joseph on the morning of 05/11/19 for followup from that ER visit. At that point, she states her blood pressure was around 130 in the office. Prior to that appointment, the patient had been notified that her [id number] . She states that it was not a sudden , as he had been diagnosed with brain cancer; however, it was still shocking nonetheless. The patient states that generally she felt unwell all day, however, in the afternoon , she tried 8 doses of hydroxyzine, which was prescribed on 05/05/19. This was the first time she had taken this medication. She states after she took the medications, she felt her heart was racing, she felt discomfort in her neck and upper back, she felt like she was shaking, she was hyperventilating. It was again noted that her blood pressure was markedly elevated. The patient went back to Dr. Joseph's office, who saw her again and this time, it was recommended she go to the emergency room as Dr. Joseph reportedly told the patient that she cannot rule out this as cardiac in nature. Currently, the patient states that she is feeling better, but not completely back to normal. She notes that since being in the emergency room, her blood pressure did trend down slightly, however, is not at her baseline. She continues to have discomfort in her chest and her upper back. On 05/05/19, the patient does not report any out of the ordinary stressors. She states that she has been under high stress over the last 1 year, but on that day when her symptoms developed, she did not have any acute stressors. PAST MEDICAL HISTORY: 1. Hypertension. 2. Acne. PAST SURGICAL HISTORY: Right knee arthroscopic surgery. MEDICATIONS: 1. Hydroxyzine 25 mg p.o. q.6 hours p.r.n. anxiety. 2. Vitamin B complex 1 tab p.o. daily. 3. CoQ10 one tab p.o. daily. 4. Multivitamin 1 tab p.o. daily. 5. Lisinopril 5 mg p.o. nightly. 6. Doxycycline 50 mg p.o. b.i.d. 7. Vitamin D3 of 1000 units p.o. daily. ALLERGIES: GLUTEN. FAMILY HISTORY: Dad is living. He has a history of Parkinson's and AFib. Mom in her 50s of multiple myeloma. SOCIAL HISTORY: The patient is a former smoker while she was teenager. She does admit to drinking 4 to 5 days a week and when she does drink, she drinks 4 to 5 alcoholic beverages. She owns a [employer] company. She is . She has 1 biologic child, 3 stepchildren, all which are healthy. 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 She does not develop any chest discomfort during those training sessions. REVIEW OF SYSTEMS: The patient denies any fever or chills. No anorexia. She does admit to chest discomfort currently. No edema. No cough or shortness of breath, but she was hyperventilating earlier. She felt nauseous and felt as if she could vomit after taking the hydroxyzine earlier today. She also had heartburn. No diarrhea or constipation. No abdominal pain. No hematochezia. No hematuria. No dysuria. No stroke like symptoms. No headache. No sudden changes in vision. No dysphagia. No joint pains or muscle pains except for the neck and upper back discomfort. No rashes. She does admit to having anxiety. PHYSICAL EXAMINATION GENERAL: The patient is a well-developed, middle-aged female, seeing sitting up in the stretcher, in no acute distress. VITAL SIGNS: Blood pressure 202/113, pulse 94, respiratory rate 18, temp 97.7, O2 sat 99% on room air. HEENT: Pupils are equal. Extraocular muscles are intact. Oropharynx is clear , moist. There is no submandibular, cervical or supraclavicular adenopathy. PULMONARY: Lungs are clear to auscultation bilaterally. CARDIAC: Normal S1 and S2. Heart rate is mildly tachycardic, but regular. I do not appreciate any murmurs. There is no lower extremity edema. ABDOMEN: Bowel sounds present. Abdomen is soft, nontender, and nondistended. MUSCULOSKELETAL: The patient moves all 4 extremities symmetrically. SKIN: Warm and dry. There are no rashes. NEUROLOGIC: Cranial nerves II through XII are grossly intact. Sensation is intact to light touch throughout. Strength is 5/5 and symmetric in both upper and lower extremities bilaterally. PSYCH: The patient is alert, she is oriented x3. Affect appears appropriate. DIAGNOSTIC STUDIES/LAB DATA: Labs: WBC 9.6, hemoglobin 14.2, hematocrit 40, platelets 537. D-dimer less than 200. Sodium 136, potassium 3.9, chloride 101 , CO2 of 21, BUN 8, creatinine 0.63, glucose 112, lactic acid 2.8, calcium 11.5 , magnesium 1.1, bilirubin 0.5, AST 20, ALT 20, alk phos 49, troponin 0, albumin 4.5, TSH 4.75, free T4 of 0.81. EKG revealed sinus tachycardia with no acute ST-T wave abnormalities. ASSESSMENT AND PLAN: Ms. Lao is a 59-year-old female, who has a history of hypertension and acne, who presents to the emergency room for the second time in approximately 1 week with complaints of palpitations, markedly elevated blood pressure, neck and upper back pain, and hyperventilation. 1. Accelerated hypertension. At this point, the patient has markedly elevated blood pressure. She tells me that at her appointment with Dr. Joseph earlier today, her blood pressure was reportedly normal. She states that she checks her blood pressure at home and they are typical fine; however, she does also carry a history of white coat hypertension. I am concerned given the patient's marked blood pressure elevation and lack of response to improvement in her anxiety. Given she has now had 2 episodes in approximately 1 week of panic type attacks with palpitations, hyperventilation, marked hypertension, I do feel that we should send urine for fractionated catecholamines and metanephrines to rule out pheochromocytoma. I did explain to the patient that I thought this was low likely, however, given her presentation I thought that was warranted. She typically takes lisinopril 5 mg at bedtime. I am going to add amlodipine 5 mg at bedtime. This will start this evening. I am hesitant to give her too much antihypertensive, as I am worried that her blood pressure will go too low. We will monitor her through the night on the order picker/assembler. 2. Neck and upper back pain. This could be an anginal equivalent, however, the patient does work out with a sports broadcaster twice weekly without any complaints of chest pain. However, as she has now had 2 episodes of this discomfort, I feel it is warranted to get an exercise stress test. The goal is to get the patient's blood pressure controlled by tomorrow morning and if it is able to come under control for the patient to do a treadmill stress test. She will have a second troponin this evening and a followup EKG tomorrow morning. 3. Anxiety. The patient does have increased anxiety currently; however, outside of the fact that her [id number] this morning, she states that her anxiety level has roberto fairly stable over the last 1 year. I am not going to initiate any treatment for this. I am going to discontinue the patient's hydroxyzine if she perceives having side effects from this. 4. Thrombocytosis. The patient, since January of 2019, has had a mild thrombocytosis. This will need to be followed as an outpatient. 5. DVT prophylaxis. According to the Adult Thrombosis Prophylaxis Risk Factor Assessment Guide, the patient has a total risk factor score of 1, making her low risk. 6. The patient is a full code. [id number]/CPS #: [id number] MTDD
[2019-05-11] MEDS ORDERED: Zolpidem TAB* 5 MG PO ONE (22:30)
[2019-05-11 22:35] LABS: Troponin I 0.03 ng/mL (<0.03)
[2019-05-12 00:54] LABS: Troponin I 0.04 ng/mL (<0.03)
[2019-05-12 07:45] VITALS: BP 122/69
[2019-05-12 07:48] LABS: Anion Gap 8 mmol/L (2-11); BUN/Creatinine Ratio 10.3 (8-20); Blood Urea Nitrogen 6 mg/dL (6-24); CO2 Carbon Dioxide 25 mmol/L (22-32); Calcium 8.5 mg/dL (8.6-10.3); Chloride 105 mmol/L (101-111); EGFR African American 129.2 (>60); EGFR Non-African American 106.8 (>60); Glucose 101 mg/dL (70-100); Potassium 3.6 mmol/L (3.5-5.0); Sodium 138 mmol/L (135-145)
--- NOTE | 2019-05-12 08:07 | PN ---
Hospitalist Progress Note Date of Service: 05/12/19 S/IE: Chayito Lao is a 59 year-old woman with a history of HTN and acne who was admitted after presenting to the [facility] last evening (05/11/19) with a CC of palpitations, SOB and neck pain. This is hospital day 2. She presented for the same complaint last week. She had followed up with her PCP who felt she might be having panic attacks. There was a recent in the family. She has taken one dose of hydroxyzine, recently prescribed for anxiety, which did not help and may have caused panic attack symptoms. Reports high stress levels over the past year. Presentation is most consistent with panic attacks. Patient needs to travel out of state for a and is inquiring about possibility of discharge. Exercise stress test was completed today and was unremarkable. Counseled regarding the health benefits of reducing alcohol consumption. Provided prescription for magnesium repletion. Plan to d/c today and advise follow-up with PCP and ore miner blasting. PMH: Hypertension, acne PSH: Right knee arthroscopic surgery Family Hx: Dad is living. He has a history of Parkinson's and AFib. Mom in her 50s of multiple myeloma. Social Hx: The patient is a former smoker while she was teenager. She does admit to drinking 4 to 5 days a week and when she does drink, she drinks 4 to 5 alcoholic beverages. She owns a [employer] company. She is . She has 1 biologic child, 3 stepchildren, all which are healthy. The patient works out frequently, she works with a emr trainer every Saturday and . She does not develop any chest discomfort during those training sessions. ROS: The patient denies any fever or chills. No anorexia. She does admit to chest discomfort currently. No edema. No cough or shortness of breath, but she was hyperventilating earlier. She felt nauseous and felt as if she could vomit after taking the hydroxyzine earlier today. She also had heartburn. No diarrhea or constipation. No abdominal pain. No hematochezia. No hematuria. No dysuria. No stroke like symptoms. No headache. No sudden changes in vision. No dysphagia. No joint pains or muscle pains except for the neck and upper back discomfort. No rashes. She does admit to having anxiety. Allergies: Gluten, External Home Meds: Hydroxyzine 25 mg PO Q6H PRN anxiety Vitamin B complex 1 tab PO QD CoQ10 1 tab PO QD Multivitamin 1 tab PO QD Lisinopril 5 mg PO QHS Doxycycline 50 mg PO BID Vitamin D3 1000 U PO QD O: PE: 3 Temp Pulse Resp BP Pulse Ox 97.6 F 77 16 122/69 100 05/12/19 07:15 05/12/19 07:15 05/12/19 07:15 05/12/19 07:15 05/12/19 07:15 General: Comfortably sitting up in bed. No acute distress. HEENT: Head normocephalic, atraumatic. Hearing grossly normal. PERRLA. EOMI. Vision grossly normal. Nares patent. Trachea midline. No JVD. Chest: Unlabored breathing with normal symmetric chest motion. Lungs clear to auscultation b/l. Normal S1/S2. No murmur. Abdomen: No-tender, non-distended. Extremities: Distal CMS intact b/l. Recent Labs: 3 05/12/19 07:00 Sodium 138 Potassium 3.6 Chloride 105 Carbon Dioxide 25 Anion Gap 8 BUN 6 Creatinine 0.58 Est GFR ( Amer) 129.2 Est GFR (Non-Af Amer) 106.8 BUN/Creatinine Ratio 10.3 Glucose 101 H Calcium 8.5 L Troponin I 0.03 H* 3 05/11/19 05/11/19 05/12/19 21:08 21:08 00:17 Lactic Acid 1.3 Troponin I 0.03 H* 0.04 H* 3 05/11/19 05/11/19 16:41 16:41 WBC 9.6 RBC 4.20 Hgb 14.2 Hct 40 MCV 96 MCH 34 H MCHC 35 RDW 13 Plt Count 537 H MPV 7.4 Neut % (Auto) 64.2 Lymph % (Auto) 19.6 [place] % (Auto) 14.8 Eos % (Auto) 0.3 Baso % (Auto) 1.1 Absolute Neuts (auto) 6.2 Absolute Lymphs (auto) 1.9 Absolute Monos (auto) 1.4 H Absolute Eos (auto) 0.0 Absolute Basos (auto) 0.1 Absolute Nucleated RBC 0.0 Nucleated RBC % 0.0 Sodium 136 Potassium 3.9 Chloride 101 Carbon Dioxide 21 L Anion Gap 14 H BUN 8 Creatinine 0.63 Est GFR ( Amer) 117.4 Est GFR (Non-Af Amer) 97.1 BUN/Creatinine Ratio 12.7 Glucose 112 H Calcium 11.5 H Magnesium 1.1 L Total Bilirubin 0.50 AST 20 ALT 20 Alkaline Phosphatase 49 Troponin I 0.00 Total Protein 7.5 Albumin 4.5 Globulin 3.0 Albumin/Globulin Ratio 1.5 3 05/11/19 05/11/19 05/11/19 16:41 16:41 16:53 D-Dimer, Quantitative < 200 Lactic Acid 2.8 H* TSH 4.75 Free T4 0.81 EKG (05/11/19): "Sinus tachycardia.rate> 99 Prolonged NC interval.NC >205, V-rate 91-120 Probable left atrial enlargement.P >50mS, <-0.10mV V1" Appears to be sinus tachycardia with mild 1st degree AV block. P and T wave inversions in V1. Possible inter-ventricular conduction abnormality in lead III. Current Medications: Acetaminophen (Tylenol Tab*) 650 mg PO Q4H PRN PRN Reason: PAIN - MILD Last Admin: 05/12/19 04:09 Dose: 650 mg Amlodipine Besylate (Norvasc Tab*) 5 mg PO [facility]EDTIME [facility] Last Admin: 05/11/19 20:40 Dose: 5 mg Lisinopril (Prinivil Tab*) 5 mg PO BEDTIME [facility] Last Admin: 05/11/19 20:40 Dose: 5 mg Tramadol HCl (Ultram*) 50 mg PO Q6H PRN PRN Reason: PAIN - MODERATE Last Admin: 05/11/19 22:15 Dose: 50 mg Recent Orders: 05/11/19 19:56 Up ad Brittany Activity Routine Admit Routine Condition Routine Vital Signs - Manual Entry Q4H Clinical Screening Routine DVT Risk Assessment Routine 05/11/19 19:58 May Go to Tests off Telemetry .PRN Glassie Notification .PRN Glassie: Continuous Q8HR 05/11/19 20:08 Catecholamine 24hr Urine Fract Routine Metanephrines Fraction Urine Routine 05/11/19 20:10 Card Stress Test - Not Nuclear Routine 05/11/19 20:52 Acetaminophen TAB* [Tylenol TAB*] 650 mg PO Q4H PRN traMADol TAB* [Ultram*] 50 mg PO Q6H PRN 05/11/19 21:00 Lisinopril TAB* [Prinivil TAB*] 5 mg PO BEDTIME amLODIPine TAB* [Norvasc TAB*] 5 mg PO BEDTIME 05/12/19 00:01 NPO After Midnight Diet 05/12/19 07:00 12 Lead EKG Routine Basic Metabolic Panel [CHEM] Routine Troponin I [CHEM] Stat A/I: 59 year-old woman with a history of HTN and acne with a CC of palpitations, SOB and neck pain, possible panic attacks, need to r/o cardiac causes P: Palpitations: High suspicion panic attack related, low suspicion of acute cardiac event Was on telemetry EKG not concerning for ischemic changes Exercise stress test negative Borderline elevated troponins do not correlate with clinical signs / symptoms of ACS, could be stress related D/c to home with recommended f/u with PCP and ore miner blasting Hypertensive Urgency: High suspicion manifestation of panic attack Resolved shortly after presentation without recurrence Received diazepam, metoprolol, amlodipine, lisinopril during stay D/c to home on lisinopril Hypomagnesemia: High suspicion due to diet and alcoholism D/c to home with Rx for Mg repletion Thrombocytosis: Chronic condition D/c to home with recommended PCP and cardiology f/u
[2019-05-12 08:13] LABS: Troponin I 0.03 ng/mL (<0.03)
--- NOTE | 2019-05-12 20:58 | DS ---
DISCHARGE SUMMARY: DATE OF ADMISSION: 05/11/19 DATE OF DISCHARGE: 05/12/19 PRIMARY CARE PHYSICIAN: Dr. Juhi Joseph. OUTPATIENT GAS ENGINE PERFORMANCE ENGINEER: Dr. Honeycutt. CHIEF COMPLAINT: Neck pain, palpitations, upper back pain, shakiness, hyperventilation. PRINCIPAL DIAGNOSES: 1. Hypertensive urgency, elevated troponin. 2. Acute coronary syndrome ruled out. 3. Possible panic attack contributing, but workup for pheochromocytoma recommended as outpatient. HISTORY OF PRESENT ILLNESS AND HOSPITAL COURSE: Chayito Lao is a 59-year-old female with past medical history of hypertension with also additional complaint of white coat hypertension and acne. Please see H and P of Dr. Aster Clements for full details, but the patient was seen back in emergency room on 05/05/19 with episode of hypertension and a sudden episode of neck pain that radiated to the shoulder blades down the upper back since the night prior. She had at that time a CT of the chest, abdomen and pelvis with IV contrast that demonstrated no evidence of aortic dissection, but there was ectasia to 4.0 cm (I calculate her 95th percentile given her body size area and age as approximately 3.8 cm). There was noted some coronary atherosclerosis, mild hepatomegaly and hepatic steatosis, small right middle lobe pulmonary nodule with recommendation to follow up in 1 year with a low-dose noncontrast CT of the chest. The patient at that time had blood pressure as high as 217/130 , was diagnosed with panic attack and given prescription for hydroxyzine 25 mg p.o. q.6 hours p.r.n. She had described multiple high stress family situations in her life. On day of admission, the patient followed with Dr. Joseph in the morning and blood pressure was around 130 in the office. The patient had been notified that her [id number] had finally succumbed to his neal with brain cancer and that was not unexpected, it was upsetting. She generally felt unwell the rest of the day and tried a dose of hydroxyzine for the first time and she felt better. Her heart rate was racing and had discomfort in her neck and upper back with shaking, is hyperventilating. Her blood pressure was markedly elevated. She went back to Dr. Joseph's office and she recommended referral to the emergency room. There, her blood pressures were again elevated to as high as 235/132. She got 2.5 mg of Valium at 5 p.m. and another 5 mg at 6 :30. She got Lopressor 5 mg IV at 1845 and then she got her home lisinopril 5 mg and new amlodipine 5 mg later that night. Blood pressure is drifted down to 170s/90s and then by the next day 120s to 140s. Her troponins were elevated, initially was 0.01, repeat 0.00 and then third 0.03, the next 2 were 0.04 and 0.03. Her EKG demonstrated T-wave and P-wave inversions in V1 and Q-wave in lead III which was not new. No ST elevations or depressions. On repeat in the morning, she had Q-wave in V1 in lead III, QTc was 499. Her initial magnesium in the emergency room was 1.1, she got 4 g of magnesium repletion. She had an exercise stress test, which was negative. On day of discharge, she was eager to get on the road to her [id number] in [place] and she was discharged with followup plan with Dr. Joseph and we would like her also to establish with Cardiology, I am not sure if she is seen her as an outpatient or Dr. Honeycutt had just done the stress echo back in 2016 which was normal. She also had a Holter monitor in 2016, which was also normal as far as I can tell. Additional workup included negative D-dimer of less than 200. Calcium was transiently elevated at 11.5, but on repeat it was 8.5 on day of discharge. TSH was 4.75, free T4 was 0.81. She is a frequent drinker about 4 to 5 nights a week she will have 3 to 4 glasses of wine. She was advised that this can both drive hypertension and remodeling of the heart putting high risk for other cardiomyopathies and might also be influencing her low magnesium level. She notably has stopped taking her Gatorade supplementation over the last month ( she had done marathons and had gotten into the habit of drinking Gatorade each day). DISCHARGE MEDICATIONS: Include: 1. Acetaminophen 650 mg p.o. q.4 hours p.r.n. 2. Cholecalciferol 1000 units p.o. daily. 3. Doxycycline 50 mg p.o. b.i.d. (she is only taking this for about a week as about to run out). 4. Hydroxyzine 25 mg p.o. q.6 hors p.r.n. 5. Lisinopril 5 mg p.o. daily. 6. Magnesium oxide 400 mg p.o. daily (new). 7. Multivitamin 1 tab p.o. daily. 8. Coenzyme Q 30 mg p.o. daily. 9. Vitamin B 50 one tab p.o. daily. FOLLOWUP: Please follow up with Dr. Juhi Joseph within 7 days. I also referred to Dr. Carina Honeycutt. 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 There was some consideration for institution of beta-blockers of she becomes increasingly symptomatic with the neck and back discomfort or hypertension. She is also notably not on a statin medication and LDL was 187 back on 01/23/19, which is quite elevated. There was also consideration that perhaps a pheochromocytoma could be part of her etiology and given her haste to leave for [place], she was not able to complete a 24-hour urine study, but this could be completed as an outpatient. DISCHARGE DIET: Heart healthy, unchanged. DISPOSITION: Home. CONDITION: Improved. TIME SPENT ON DISCHARGE: 40 minutes. [id number]/CPS #: [id number]
[2019-05-15 18:15] LABS: Urine Collection Duration 24 h; Urine Total Metanephrines 229 mcg/24 h
== END 2019-05-12 10:50 | disposition home or self-care (01) ==
LOC: ED 15:25 → MEDTELE 19:56
PROVIDERS: ADMIT Hospitalist; ATTEND Internal Medicine
DX: I16.0 Hypertensive urgency (principal); M54.2 Cervicalgia; M54.6 Pain in thoracic spine; F41.9 Anxiety disorder, unspecified; E83.42 Hypomagnesemia; D47.3 Essential (hemorrhagic) thrombocythemia; R00.2 Palpitations; R06.4 Hyperventilation; Z79.899 Other long term (current) drug therapy; L70.9 Acne, unspecified; Z87.891 Personal history of nicotine dependence; R06.02 Shortness of breath
CPT/HCPCS: 36415; 80048; 80053; 81050; 82382; 83605; 83735; 83835; 84439; 84443; 84484; 85025; 85379; 93005; 93017; 96365; 96366; 96375; 96376; 99283; A9270-GY; G0378; J3360; J3475; J3490